=== PATIENT | female | born 1975 | race Caucasian/White ===

== ENCOUNTER 2023-04-10 06:20 | Day surgery (SDC) | payer BC ==
[~2023-04-10] VITALS: Ht 170.2 cm; Wt 85.7 kg
[~2023-04-10 06:20] MED LIST: BENADRYL ALLERG25 MG PO; EUTHYROX125 MCG PO; MULTIPLE VITAM1 EAC2 PO; TURMERIC500 M2 PO; VALTREX1000 MG PO
[2023-04-10 06:35] VITALS: BP 113/67
[2023-04-10 09:08] VITALS: BP 111/68
--- NOTE | 2023-04-11 07:21 | OR ---
[facility] [address] [place], [place] [address] Signed DATE OF OPERATION: 04/10/2023 SURGEON: Laurel Bowers MD PREOPERATIVE DIAGNOSES: 1. Father with colonic polyps at age 66. 2. A niece with rectal cancer at age 24, doing well at age 40. POSTOPERATIVE DIAGNOSES: 1. 7 mm polyp at 10 cm in rectum. 2. Minimal left-sided diverticulosis. PROCEDURE: Colonoscopy without biopsy. ESTIMATED BLOOD LOSS: None. INDICATIONS: Isi is a 48-year-old female, who asked to see me for initial screening colonoscopy. We know her father had colonic polyps removed at age [address] Marina. She told me today that he had lots of polyps and growing back every five years. Unfortunately, her father is now in hospice due to his dementia. Isi told me her sister's daughter was diagnosed with a rectal cancer at age 24. She was treated in [place], [place]. She is now doing well at age 40. Isi has no lower GI complaints herself. I had seen her in 2019 at the age of 44. At that time we had her come back at age 48 for initial screening colonoscopy. She is aware that the criteria now changed and initial screening age is 43. Nevertheless, she has no lower GI complaints. In the office, I gave her a pamphlet on colonoscopy. We looked at that carefully. She understands the nature of the test. There is risk including, but not limited to gas bloating, crampy abdominal pain, bleeding, perforation requiring surgery, and missed diagnosis. We also reviewed the written instructions for the bowel prep line by line. She started her bowel prep in the morning because of her gastric bypass surgery. She said it went very well. She also understands the need for IV conscious sedation. She is aware that an adult person has to take her home afterwards. She had expressed understanding and wished to proceed. PROCEDURE IN DETAIL: Isi was taken into our endoscopy suite and placed in the left lateral decubitus position. She was given a total of 5 mg of Versed and 125 mcg of fentanyl to cover the case. A digital rectal exam was performed, this was unremarkable. Really no external Electronically Signed By: LAUREL BOWERS MD 04/11/23 0721 PATIENT NAME: ISI PIZARRO OPERATIVE REPORT DATE OF : 71 REPORT #: [id number] PHYSICIAN: LAUREL BOWERS MD PCP: MARIA LUISA ARNOLD PAC REPORT IS CONFIDENTIAL AND NOT TO BE RELEASED WITHOUT AUTHORIZATION [facility] [address] [place], [place] [address] Signed hemorrhoids. There was good sphincter tone. No masses. The adult colonoscope was introduced and advanced under direct visualization of camera. It took just a little abdominal compression to get the scope around into the cecum itself. The proximal half of her colon was quite clean. The distal half had a little bit of mucousy liquid particulate stool matter. Most of that was irrigated and suctioned out. The scope was then slowly withdrawn. We took pictures throughout for photodocumentation. We could easily see the appendiceal orifice, ileocecal valve. She had just a few diverticula in the left and sigmoid colon. They were small in size, few in number and scattered about. In the rectum at 10 cm, she had a small polyp easily removed with the help of hot biopsy forceps. It measured about 7 mm. It was 10 cm up in the rectum. Upon retroflexion of scope really nothing in the way of internal hemorrhoid columns. A couple of tiny internal anal skin tags. After this, the gas was suctioned out. The colonoscope removed. Isi tolerated the procedure quite well. RECOMMENDATIONS: Isi will follow up my office in 7 to 14 days to review her results. It looks like she is going to stay on the five year plan. Laurel Bowers MD ALB/MODL /[id number] cc: Maria Luisa Arnold PA-C Copies: MARIA LUISA ARNOLD ~ Electronically Signed By: LAUREL BOWERS MD 04/11/23 0721 PATIENT NAME: ISI PIZARRO OPERATIVE REPORT DATE OF : 71 REPORT #: [id number] PHYSICIAN: LAUREL BOWERS MD PCP: MARIA LUISA ARNOLD REPORT IS CONFIDENTIAL AND NOT TO BE RELEASED WITHOUT AUTHORIZATION
--- NOTE | 2023-04-11 14:47 | PATH ---
[facility] [address] [place], [place] [address] Signed SPECIMEN(S): A RECTAL POLYP AT 10 CM SPECIMEN SOURCE: A. RECTAL POLYP AT 10 CM CLINICAL HISTORY: Initial screening colonoscopy, family hx polyps, family hx rectal cancer. Post: Diverticulosis and polyp x 1. FINAL PATHOLOGIC DIAGNOSIS: Rectal polyp at 10 cm: - Tubular adenoma (one fragment). JVR:[facility] MICROSCOPIC EXAMINATION: Histologic sections of all submitted blocks are examined by light microscopy. These findings, together with the gross examination, support the pathologic diagnosis. GROSS DESCRIPTION: The specimen, labeled and designated "Karlos, rectal polyp at 10 cm," is received in formalin and consists of one bingham soft tissue fragment, 0.1 cm. Entirely submitted in (A1). JS (under the direct supervision of a pathologist) The Gross Description was prepared using a voice recognition system. The report was reviewed for accuracy; however, sound-alike word errors, addition and/or deletions may occur. If there is any question about this report, please contact Client Services. PERFORMING LABORATORY: Technical component was performed by [facility], [address] [place] [id number] (CLIA# [id number]). Professional interpretation was performed by [facility], [address] [place] [address], [place] [address] (CLIA#: [id number]). Diagnostician: Balaji Hatfield MD Pathologist Electronically Signed 04/11/2023 Copies: PATIENT NAME: MARK PIZARRO PATHOLOGY DATE OF : 71 REPORT #: [id number] PHYSICIAN: DINA KING PCP: ANAMIKA BYRD REPORT IS CONFIDENTIAL AND NOT TO BE RELEASED WITHOUT AUTHORIZATION [address] [address] Signed ~ PATIENT NAME: MARK PIZARRO PATHOLOGY DATE OF : 71 REPORT #: [id number] PHYSICIAN: DINA KING PCP: ANAMIKA BYRD REPORT IS CONFIDENTIAL AND NOT TO BE RELEASED WITHOUT AUTHORIZATION
== END 2023-04-10 09:15 | disposition home or self-care (01) ==
LOC: DS 06:20 → OPS 06:20 → DS 07:30 → OPS 09:15
PROVIDERS: ATTEND Colon & Rectal Surgery
PROC: 0DBP8ZX Excision of Rectum, Via Natural or Artificial Opening Endoscopic, Diagnostic (ICD-10-PCS; principal; 2023-04-10 07:30)
DX: Z12.11 Encounter for screening for malignant neoplasm of colon (principal); D12.8 Benign neoplasm of rectum; K57.32 Diverticulitis of large intestine without perforation or abscess without bleeding; K64.8 Other hemorrhoids; K64.4 Residual hemorrhoidal skin tags; Z83.71 Family history of colonic polyps; Z80.0 Family history of malignant neoplasm of digestive organs; Z98.84 Bariatric surgery status; E03.9 Hypothyroidism, unspecified; Z88.1 Allergy status to other antibiotic agents; Z79.899 Other long term (current) drug therapy; Z79.890 Hormone replacement therapy
CPT/HCPCS: 99153; G0500; J2250; J3010; J7121

== ENCOUNTER 2025-04-16 00:44 | Emergency (ER) | payer BC ==
[~2025-04-16] VITALS: Ht 170.2 cm; Wt 82.2 kg
[2025-04-16] MEDS ORDERED: LACTATED RINGER'S 1,000 ML IV ONE (01:00)
[2025-04-16 01:06] LABS: BASOPHILS 0.5 % (0.1-1.2); EOSINOPHILS 2.2 % (0.7-5.8); LYMPHOCYTES 15.2 % (19.3-51.7); MCH 30.3 PG (25.6-32.2); MCHC 32.8 g/dL (32.2-35.5); MCV 92.4 fL (79.4-94.8); MONOCYTES 5.3 % (4.7-12.5); NEUTROPHILS 76.3 % (34.0-71.1); RBC 4.62 M/uL (3.93-5.22)
[2025-04-16 01:16] LABS: INR 0.97 (0.80-1.30); PROTIME 12.2 Sec (11.2-14.2)
[2025-04-16 01:24] LABS: ALT (SGPT) 24.0 U/L (14-59); AST (SGOT) 22.0 U/L (15-37); GLOMERULAR FILTRATION RATE,EST 105.0 mL/min (>60); PROTEIN, TOTAL 6.7 g/dL (6.4-8.2); UREA NITROGEN 13.0 mg/dL (7-18)
[2025-04-16 01:38] LABS: CORONAVIRUS COVID-19 AG NEGATIVE (NEGATIVE)
[2025-04-16] MEDS ORDERED: ONDANSETRON ODT8 MG PO (01:43)
[2025-04-16 02:02] VITALS: BP 132/78
--- NOTE | 2025-04-17 23:18 | EKG ---
[facility] [address] [facility] [place] [address] Signed Sinus rhythm with premature atrial complexes Otherwise normal ECG No previous ECGs available Confirmed by Jessica Sanchez MD () on 04/17/2025 11:18:12 PM Electronically Signed By: JESSICA SANCHEZ MD 04/17/25 2318 PATIENT NAME: MARK PIZARRO Electrocardiogram DATE OF : 71 PHYSICIAN: JESSICA SANCHEZ MD REPORT #: [id number] REPORT IS CONFIDENTIAL AND NOT TO BE RELEASED WITHOUT AUTHORIZATION
== END 2025-04-16 02:03 | disposition home or self-care (01) ==
LOC: ED 00:44
PROVIDERS: Family Medicine
DX: K29.70 Gastritis, unspecified, without bleeding (principal); R07.89 Other chest pain; R11.15 Cyclical vomiting syndrome unrelated to migraine; Z91.041 Radiographic dye allergy status; Z88.8 Allergy status to other drugs, medicaments and biological substances; Z91.048 Other nonmedicinal substance allergy status; Z79.890 Hormone replacement therapy; Z79.899 Other long term (current) drug therapy; Z11.52 Encounter for screening for COVID-19
CPT/HCPCS: 36415; 71045; 80053; 83690; 83735; 84484; 85025; 85610; 93005; 93010; 96374; 96375; 99284-25; J1790; J2405; J7121